=== PATIENT | female | born 1980 | race Caucasian/White ===

== ENCOUNTER 2022-10-14 14:38 | Emergency (ER) | payer OTHER, SELFPAY ==
--- NOTE | ~2022-10-14 | XR_ITS ---
EXAMINATION: XR chest 2V Exam Date/Time: 10/14/2022 15:45 CDT HISTORY: COUGH Comparison: None available. RESULT: Lines, tubes, and devices: None. Lungs and pleura: Minimal streaky bibasilar opacities likely representing atelectasis/scar. Cardiomediastinal silhouette: Moderate hiatal hernia, otherwise unremarkable. Other: No acute osseous or upper abdominal finding. IMPRESSION: No acute cardiopulmonary process. Reviewed, dictated and finalized at location K.
[2022-10-14 14:47] VITALS: BP 140/73; PULSE 89; RESP 16; TEMP 36.6; O2SAT 97
--- NOTE | 2022-10-14 16:14 | ED.URI ---
HPI - URI/Sore Throat General Chief Complaint: Upper Respiratory Infection Stated Complaint: Chest Congestion/Cough/Fever Time Seen by Provider: 10/14/22 16:14 Source: patient, family, RN notes reviewed and old records reviewed Mode of arrival: ambulatory Limitations: no limitations History of Present Illness HPI Narrative: 42 year old female who presents to express care with significant other with complaints of 5-6 days duration of frequent cough, chest congestion, head congestion, has felt feverish and had chills with some shortness of breath and wheezing. Patient reports that she went to another urgent care when she started with her symptoms and received steroids with on day left of prescription. Patient reports that she had Moderna COVID shot about 2 months ago and she took home COVID test today which was negative. Patient reports that it is hard to take a deep breath cause it makes her cough. She has been taking the steroids that were prescribed for her and she has taken some Tessalon Perles. MD elicited complaint: cough, rhinorrhea, nasal congestion and other (has felt feverish and had chills) Pertinent past history: other (tobacco abuse and vaping for 10 years) Onset (ago): day(s) (5-6) Description of mucous: yellow Able to tolerate fluids by mouth: Yes Treatments prior to arrival: other (tessalon perles, prednisone) Related Data Home Medications Medication Instructions Recorded Confirmed lithium carbonate 150 mg capsule See Rx Instructions .Route .COMPLEX 10/14/22 10/14/22 naloxone 0.4 mg/mL injection See Rx Instructions .Route .COMPLEX 10/14/22 10/14/22 solution prazosin 1 mg capsule See Rx Instructions .Route .COMPLEX 10/14/22 10/14/22 Allergies Allergy/AdvReac Type Severity Reaction Status Date / Time No Known Allergies Allergy Verified 10/14/22 15:46 Review of Systems Review of Systems: CONSTITUTIONAL: Reports malaise, chills, sweats, or fever. EYES: Denies visual changes, redness, or discharge. ENT: Reports rhinorrhea, congestion, sinus pain, no otalgia, nosore throat. CARDIOVASCULAR: Denies chest pain, palpitations, or edema. RESPIRATORY: Reports cough.?Reports dyspnea at rest and with exertion GASTROINTESTINAL: Denies abdominal pain, nausea, vomiting, diarrhea SKIN: Denies rash or itching. MUSCULOSKELETAL: Denies myalgia. NEUROLOGIC: Denies headache. All systems reviewed & are unremarkable except as noted in HPI and below PMFSH Past Medical History Medical History (Updated 10/16/22 @ 17:27 by Kaitlin Laws NP) History of ITP Manic depressive disorder Surgical History Surgical History (Updated 10/16/22 @ 17:30 by Kaitlin Laws NP) History of tonsillectomy and adenoidectomy Previous section Social History Social History (Updated 10/16/22 @ 17:28 by Kaitlin Laws NP) Smoking status: Current every day smoker Tobacco type: e-cigarettes/vaping Alcohol intake: current Alcohol use details: states occasional alcohol former alcohol abuse Substance use: current Substance use type: marijuana Gender identity (if verbalized by the patient): Female Comments At time of signature, agree with nursing past medical, surgical, social and family history. There is no relevant family history pertinent to the presenting complaint Exam Narrative: GENERAL: Well-appearing, well-nourished, and in no acute distress. HEAD: Normocephalic EYES: PERRLA, conjunctivae clear ENT: Nares clear, turbinates edematous and erythematous, clear discharge. Mucous membranes moist. TM pearly armas with dull light reflex bilaterally; no tragal tenderness. Oropharynx erythematous without lesions. Tonsils not present and without exudate, no drooling, no hoarseness, no trismus, uvula midline.post nasal drainage noted NECK: Supple. No lymphadenopathy CHEST:Decreased to auscultation, breath sounds equal. No wheezing, rhonchi, rales, or stridor. No respiratory distress, speaks in fu
== END 2022-10-14 16:50 | disposition home or self-care (01) ==
PROVIDERS: Emergency Provider Registered Nurse; PCP Emergency Medicine
DX: J06.9 Acute upper respiratory infection, unspecified (principal); F17.290 Nicotine dependence, other tobacco product, uncomplicated; D69.3 Immune thrombocytopenic purpura; F31.9 Bipolar disorder, unspecified
CPT/HCPCS: 71046; 99213; G0463